=== PATIENT | male | born 1935 ===

== ENCOUNTER → 2018-10-28 23:26 | Outpatient (REF) | payer MEDICARE, OTHER, SELFPAY ==
[2018-10-29 01:49] LABS: Erythrocyte Sedimentation Rate 9 MM/HR (0-15)
== END ==
LOC: LAB 23:26
PROVIDERS: Visit Provider Specialist
DX: K76.89 Other specified diseases of liver (principal); R94.4 Abnormal results of kidney function studies
CPT/HCPCS: 85651